=== PATIENT | male | born 1945 | race Caucasian/White ===

== ENCOUNTER → 2020-10-12 10:31 | Outpatient (CLI) | payer MEDICARE | END | disposition home or self-care (01) | LOC: D.LAB 10:31 | PROVIDERS: ATTEND Internal Medicine Pulmonary Disease | DX: J44.9 Chronic obstructive pulmonary disease, unspecified (principal) ==

== ENCOUNTER → 2020-10-17 08:50 | Outpatient (CLI) | payer MEDICARE | END | disposition home or self-care (01) | LOC: D.RT 09-24 13:00 | PROVIDERS: ATTEND Internal Medicine Pulmonary Disease | DX: J44.9 Chronic obstructive pulmonary disease, unspecified (principal) ==